=== PATIENT | female | born 1990 | race Caucasian/White ===

== ENCOUNTER 2023-08-16 15:56 | Emergency (ER) | payer BC, SELFPAY ==
[2023-08-16 15:58] VITALS: BP 120/82; BMI 21.6
--- NOTE | 2023-08-16 16:29 | ED.GENMED ---
History of Present Illness
General
Chief Complaint: Abdominal Symptoms
Source: patient
Exam Limitations: none
Time Seen by Provider: 08/16/23 16:18
Travel History
Have you had any contact with someone who has COVID-19?: No
Do you have any symptoms of coronavirus? Fever > 100 degrees, chills, cough, shortness of breath, sore throat, loss of taste or smell, muscle aches, or headache?: No
History of Present Illness
History of Present Illness:
See MDM
Past History
Past History
ED Past Medical History: None
ED Past Surgical History: None
Social History
Tobacco: Non-smoker
Alcohol: Occasional
Drug: None
Personal: Single
Living: with family
Employment: Employed
Family History
Family History: Other (non contributory)
Phy Exam
Physical Exam
Physical Exam:
See MDM
Course
Orders/Labs/Results
Orders:
Orders
08/16/23 16:25
0.9% Sodium Chloride 1000 ml [Nss] 1,000 ml IV BOLUS
Test Result ONCE
08/16/23 16:43
Complete Blood Count/With Diff Urgent
Comprehensive Metabolic Panel Urgent
HCG, Serum Qualitative Screen Urgent
Lipase Urgent
08/16/23 16:44
Promethazine [Phenergan] 12.5 mg 0.9% Sodium Chloride 50 ml [Nss] 50 ml IV NOW
08/16/23 19:17
0.9% Sodium Chloride 1000 ml [Nss] 1,000 ml IV BOLUS
08/16/23 20:52
Famotidine [Pepcid] 20 mg IV NOW STA
Abnormal Lab Results
08/16/23
16:43
MCH 33.0 H pg
(27.0-31.0)
Absolute Lymphs (auto) 0.6 L 10^3/uL
(1.2-3.4)
Neutrophils % 80.8 H %
(42.2-75.2)
Lymphocytes % 10.6 L %
(20.5-51.1)
Chloride 93 L mmol/L
(98-107)
BUN 24 H mg/dl
(7-17)
Glucose 110 H mg/dl
(70-99)
Calcium 10.6 H mg/dl
(8.4-10.2)
Total Protein 8.9 H g/dl
(6.3-8.2)
Albumin 5.5 H g/dl
(3.5-5.0)
08/16/23 16:43
08/16/23 16:43
Vital Signs
Initial and Last Documented VS:
Initial Vital Signs
Temp Pulse Resp BP Pulse Ox
99.3 F 62 16 120/82 100
08/16/23 15:58 08/16/23 15:58 08/16/23 15:58 08/16/23 15:58 08/16/23 15:58
Last Documented Vital Signs
Temp Pulse Resp BP Pulse Ox
99.3 F 62 16 127/83 99
08/16/23 15:58 08/16/23 15:58 08/16/23 15:58 08/16/23 20:00 08/16/23 20:15
MDM/Problems Addressed
Differential Diagnosis Includes:
HPI and MDM Narrative:
32-year-old female presenting with nausea and vomiting. This has been ongoing since Thursday morning. She recently returned from a girls trip to [place]. While there, one of the other girls had GI symptoms. Patient states she is having trouble
eating or drinking. She denies diarrhea or abdominal pain. Zofran at home is not helping
On exam, she does have dry mucous membranes. Will provide her with IV fluids. Will obtain basic blood work. She has a very soft and nontender abdomen. We discussed low utility and abdominal imaging given the benign exam. Given that Zofran is
not will give dose of promethazine
Physical exam
General: Well appearing and non-toxic
HEENT: protecting airway. Dry mucous membranes
Neck: appears supple
CV: No evidence of cyanosis
Resp: No accessory muscle use
Abd: Non-distended. Soft and nontender
Extremities: No deformities
Neuro: alert
Psych: Normal affect
Skin: Intact
Problems Addressed including Acute and Chronic Conditions affecting care:
1. Nausea and vomiting
Acuity: acute
Prognosis: stable
Details: Likely in setting of viral gastroenteritis. Patient is soft and nontender abdomen. Will give IV fluids and control symptoms with promethazine
Updates
After 2 L of normal saline, patient states she started feel better. She is tolerating sips of water and states he wants to go home
Differential Diagnosis (but not limited to): Viral gastroenteritis, , dehydration
Testing considered: Right upper quadrant ultrasound but no tenderness elicited
Drug therapy (if applicable): OTC meds, please see d/c instruction regarding Rx drugs
Amount and/or Complexity of Data Reviewed
Clinical info obtained from: Patient
External data reviewed: N/A
Labs I independently reviewed (but not limited to): White blood cell count normal
Radiology: N/A
Pulse Ox: not hypoxic
EKG independently reviewed: N/A
Tub Operator: N/A
Critical Care: N/A
Risk of Complication:
Social Determinants of health: Good social support
Discussed with other providers: N/A
Escalation of Care includes Admit/Obs: After being observed in the Emergency Department, pt stable for discharge.
Occasional wrong word or 'sound a like' substitutions may have occurred due to the inherent limitations of voice recognition software. Read the chart carefully and recognize, using context, where substitutions have occurred.
*Critical Care Note
Total Time (30-74mins, 75-104mins- exclusive of procedures): Not Applicable
ED Attending Note
-
Portions of this chart may have been created with voice recognition software.� Occasional wrong word or��sound alike� substitutions may have occurred due to the inherent limitations of voice recognition software.
Discharge Plan
Departure
Patient Disposition: Home (Routine Discharge)
Date of Disposition: 08/16/23
Time of Disposition: 21:11
Patient with high blood pressure during this ER visit?: No
Discharge Problem:
Viral gastroenteritis
Instructions: Nausea and Vomiting, Adult (DC)
Prescriptions:
No Action
PNV cmb#95-ferrous fumarate-FA [] 28 mg iron- 800 mcg Tablet
1 tab PO DAILY
furosemide 20 mg Tablet
20 mg PO 1XD Qty: 30 0RF
sodium chloride 1,000 mg Tablet,Soluble
1,000 mg PO BID Qty: 60 0RF
hydromorphone 4 mg Tablet
2 mg PO Q4HPRN PRN (Reason: severe pain) Qty: 40 0RF
Referrals:
Alison Han PA [Family Provider] -
Activity Restrictions/Additional Instructions:
Please return for any worsening symptoms.
You may return at any time if you have further concerns.
Please follow up with your doctor at the first available appointment, preferably this week.
Thank you for choosing [facility].
Interventions
Interventions:
*Risk Screen - Suicide Last Done: 08/16/23 15:58
*General Assessment Last Done: 08/16/23 16:39
*Neglect/Abuse Screening Last Done: 08/16/23 15:58
*ED COVID-19 Vaccine History Last Done: 08/16/23 15:58
GT-Chsuvb-Usghsbzvlr Assessment Last Done: 08/16/23 16:39
[2023-08-16] MEDS: NSS 1000 IV ×2 (16:53→19:19)
[2023-08-16] MEDS: PHENERGAN 50.5 MG IV (17:01)
[2023-08-16 17:05] LABS: % Basophils 0.4 % (0-2); % Immature Granulocytes 0.2 % (0-0.5); % Lymphocytes 10.6 % (20.5-51.1); % Neutrophils 80.8 % (42.2-75.2); Absolute Lymphocytes 0.6 10^3/uL (1.2-3.4); Absolute Monocytes 0.4 10^3/uL (0.1-0.6); Absolute Neutrophils 4.4 10^3/uL (1.4-6.5); Hematocrit 40.7 % (37.0-47.0); Hemoglobin 14.6 g/dL (12.0-16.0); Mean Corp Hgb Conc. 35.9 g/dL (33.0-37.0); Mean Corpuscular Volume 91.9 fL (81.0-99.0); Mean Platelet Volume 10.2 fL (7.4-10.4); Nucleated Red Blood Cells % 0 %; Platelet Count 259 10^3/uL (130-400); Red Blood Cell Count 4.43 10^6/uL (4.20-5.40); Red Cell Dist. Width 11.5 % (11.5-14.5); White Blood Cell Count 5.5 10^3/uL (4.8-10.8)
[2023-08-16 17:10] LABS: HCG, Serum Qualitative Screen Negative
[2023-08-16 17:13] LABS: ALT (SGPT) 22 U/L (0-35); AST (SGOT) 28 U/L (14-36); Albumin 5.5 g/dl (3.5-5.0); Alkaline Phosphatase 58 U/L (38-126); Blood Urea Nitrogen 24 mg/dl (7-17); Calcium 10.6 mg/dl (8.4-10.2); Carbon Dioxide 30 mmol/L (22-30); Chloride 93 mmol/L (98-107); Estimated Creatinine Clearance 95 ml/min; Glucose 110 mg/dl (70-99); Potassium 3.7 mmol/L (3.5-5.1); Sodium 137 mmol/L (135-145); Total Bilirubin 0.9 mg/dl (0.2-1.3); Total Protein 8.9 g/dl (6.3-8.2); eGFR > 60.00
[2023-08-16 17:27] LABS: Lipase 48 U/L (23-300)
[2023-08-16 19:00] VITALS: BP 122/83
[2023-08-16 20:00] VITALS: BP 127/83
[2023-08-16 21:00] VITALS: BP 117/86
[2023-08-16] MEDS: PEPCID 20 MG IV (21:02)
== END 2023-08-16 21:25 | disposition home or self-care (01) ==
LOC: EMR 15:56
PROVIDERS: EMERGENCY PHYSICIAN Student in an Organized Health Care Education/Training Program; FAMILY PHYSICIAN Physician Assistant
DX: A08.4 Viral intestinal infection, unspecified (principal)
CPT/HCPCS: 99284; 96374; 96375; 96361 ×3; 80053; 83690; 84703; 85025

== ENCOUNTER 2023-08-18 09:01 | Emergency (ER) | payer BC, SELFPAY ==
[2023-08-18 09:14] VITALS: BP 129/81
--- NOTE | 2023-08-18 10:14 | ED.GENMED ---
History of Present Illness
General
Chief Complaint: Abdominal Symptoms
Source: patient and spouse
Time Seen by Provider: 08/18/23 09:44
Travel History
Have you had any contact with someone who has COVID-19?: No
Do you have any symptoms of coronavirus? Fever > 100 degrees, chills, cough, shortness of breath, sore throat, loss of taste or smell, muscle aches, or headache?: No
History of Present Illness
History of Present Illness:
This patient is a very pleasant 32-year-old female who is visiting [place] with friends over the weekend. One of her friends became ill with nausea and vomiting on Thursday. By Thursday, patient was experiencing the same symptoms, intractable
nausea and nonbloody vomiting. She had such difficulty tolerating any p.o. that she came to the emergency department on Thursday with continued symptoms. At that time she had a full evaluation, was hydrated, given antinausea medication, and felt
better. However, about 24 hours after discharge, symptoms recurred. She reports nausea and continued nonbloody vomiting. When asked about abdominal pain she denies pain. She said that she had 'abdominal spasms' on Thursday only while she was
'heaving'. This is resolved. She now just feels like she has 'acid reflux' uncomfortableness. Her last menstruation was August 11 and she is still menstruating. She now notes loose stools that are not black or bloody. Besides travel to [place]
or [place] she denies exotic or foreign travel. She denies fever, chills, chest pain, dyspnea, or other complaints.
Past History
Past History
ED Past Medical History: Other (HELLP December 2021, reflux, hemochromatosis trait)
ED Past Surgical History:
Social History
Tobacco: Non-smoker
Alcohol: Occasional
Drug: None
Personal:
Living: with family
Employment: Employed
Family History
Family History: Other (non contributory)
Phy Exam
Physical Exam
Physical Exam:
GENERAL: Alert , in no apparent distress
EYE: pupils equal and reactive
NECK: Supple, no significant adenopathy.
ENT: o/p clr, mm dry
CARDIAC: Regular rate and rhythm .
LUNGS: Clear breath sounds bilaterally, no acute respiratory distress, no wheezes/rales/rhonchi
ABDOMEN: Soft, without focal tenderness, no r/g, no cvat
NEUROLOGICAL: Alert and oriented, no focal neuro deficits
SKIN: Warm and dry, skin intact.
MUSCULOSKELETAL: No edema, well perfused.
PSYCH: Normal and appropriate interaction.
Course
Orders/Labs/Results
Orders:
Orders
08/18/23 10:13
Cardiac Monitoring- Treatment ONCE
0.9% Sodium Chloride 1000 ml [Nss] 1,000 ml IV BOLUS
Pantoprazole [Protonix IV] 40 mg IV NOW STA
Test Result ONCE
08/18/23 10:52
Complete Blood Count/No Diff Urgent
Comprehensive Metabolic Panel Urgent
HCG, Serum Qualitative Screen Urgent
Lipase Urgent
Promethazine [Phenergan] 12.5 mg 0.9% Sodium Chloride 50 ml [Nss] 50 ml IV NOW
08/18/23 12:27
0.9% Sodium Chloride 1000 ml [Nss] 1,000 ml IV BOLUS
Abnormal Lab Results
08/18/23
10:52
RBC 3.91 L 10^6/uL
(4.20-5.40)
Hct 36.1 L %
(37.0-47.0)
MCH 33.2 H pg
(27.0-31.0)
RDW 11.0 L %
(11.5-14.5)
MPV 10.5 H fL
(7.4-10.4)
Sodium 131 L mmol/L
(135-145)
BUN 18 H mg/dl
(7-17)
Creatinine 0.5 L mg/dL
(0.6-1.0)
08/18/23 10:52
08/18/23 10:52
Vital Signs
Initial and Last Documented VS:
Initial Vital Signs
Temp Pulse Resp BP Pulse Ox
99.3 F 61 20 129/81 98
08/18/23 09:14 08/18/23 09:14 08/18/23 09:14 08/18/23 09:14 08/18/23 09:14
Last Documented Vital Signs
Temp Pulse Resp BP Pulse Ox
99.3 F 59 20 119/90 98
08/18/23 09:14 08/18/23 15:15 08/18/23 15:15 08/18/23 14:00 08/18/23 10:57
*Critical Care Note
Total Time (30-74mins, 75-104mins- exclusive of procedures): Not Applicable
Update Note
Update Note:
Patient presents to the Emergency Department with __nausea vomiting diarrhea
Number and Complexity of Problems Addressed at the Encounter
� Chronic conditions affecting care:
� Acute Exacerbation and/or Progression of Chronic Illness:
� Differential Diagnosis includes: But not limited to bowel obstruction, viral gastroenteritis, cholecystitis, appendicitis, etc. etc.
Amount and/or Complexity of Data to be Reviewed and Analyzed
� I performed an independent evaluation of and my interpretation is:
EKG:
CT:
Xrays:
Laboratory Studies: Generally unremarkable, mild prerenal azotemia suggestive of dehydration
Other:
� Review of other/old records reveals: ER records from 08/15 reviewed
� Clinical information was obtained by an independent historian: who is bedside
� Prescriptions/Medications Considered but not given:
� Further testing considered but not performed:
Risk of Complications and/or Morbidity or Mortality of Patient Management
� Social determinants of health affecting care:
� Discussion with other providers (PCP, Hospitalists, Consultants, etc):
� Escalation of care including admission/observation vs risk of discharge considered: 12:28 PM reassessment, abdomen remains soft and patient denies abdominal pain or repeated vomiting. She just took a nap, drowsiness may be a
side effect of antinausea medication in addition to repeated vomiting and likely lack of sleep at home. She has not yet urinated here. Will repeat IV fluids and reassess.
209 PM no vomiting, no abd pain, would like to try po. anticipate d/c. no findings to suggest acute abd/pelvic/neuro process.
ED Attending Note
-
Portions of this chart may have been created with voice recognition software.� Occasional wrong word or��sound alike� substitutions may have occurred due to the inherent limitations of voice recognition software.
Discharge Plan
Departure
Patient Disposition: Home (Routine Discharge)
Patient with high blood pressure during this ER visit?: Yes
Condition: Good
Discharge Problem:
Vomiting
Instructions: Nausea and Vomiting, Adult (DC), BLOOD PRESSURE
Prescriptions:
No Action
PNV cmb#95-ferrous fumarate-FA [] 28 mg iron- 800 mcg Tablet
1 tab PO DAILY
furosemide 20 mg Tablet
20 mg PO 1XD Qty: 30 0RF
sodium chloride 1,000 mg Tablet,Soluble
1,000 mg PO BID Qty: 60 0RF
hydromorphone 4 mg Tablet
2 mg PO Q4HPRN PRN (Reason: severe pain) Qty: 40 0RF
Referrals:
Alison Han PA [Family Provider] - Tomorrow
Activity Restrictions/Additional Instructions:
IF YOU DEVELOP RECURRENT/REPEATED VOMITING, FEVER, ABDOMINAL PAIN, CHEST PAIN, TROUBLE BREATHING, OR OTHER WORRISOME SIGNS, GO TO THE ER IMMEDIATELY!
Interventions
Interventions:
*Risk Screen - Suicide Last Done: 08/18/23 11:06
*General Assessment Last Done: 08/18/23 10:57
*Neglect/Abuse Screening Last Done: 08/18/23 11:06
ED- Fall Risk Assessment Last Done: 08/18/23 10:57
*ED COVID-19 Vaccine History Last Done: 08/18/23 10:57
*Nursing Disposition Last Done: 08/18/23 15:21
KI-Nzcosz-Hkexvclxjq Assessment Last Done: 08/18/23 10:57
Discharge Date and Time
Discharge Date/Time: 08/18/23 15:25
Print Language: ALBANIAN
[2023-08-18] MEDS: PROTONIX IV 40 MG IV (10:51)
[2023-08-18] MEDS: NSS 1000 IV ×2 (10:51→12:41)
[2023-08-18 10:57] VITALS: BMI 22.4
[2023-08-18 11:03] VITALS: BP 125/90
[2023-08-18 11:09] LABS: Hematocrit 36.1 % (37.0-47.0); Mean Corpuscular Hgb 33.2 pg (27.0-31.0); Mean Corpuscular Volume 92.3 fL (81.0-99.0); Mean Platelet Volume 10.5 fL (7.4-10.4); Platelet Count 195 10^3/uL (130-400); Red Blood Cell Count 3.91 10^6/uL (4.20-5.40); White Blood Cell Count 6.3 10^3/uL (4.8-10.8)
[2023-08-18] MEDS: PHENERGAN 50.5 MG IV (11:12)
[2023-08-18 11:30] LABS: HCG, Serum Qualitative Screen Negative
[2023-08-18 11:31] LABS: ALT (SGPT) 23 U/L (0-35); AST (SGOT) 26 U/L (14-36); Albumin 4.7 g/dl (3.5-5.0); Alkaline Phosphatase 47 U/L (38-126); Blood Urea Nitrogen 18 mg/dl (7-17); Calcium 9.3 mg/dl (8.4-10.2); Carbon Dioxide 23 mmol/L (22-30); Chloride 98 mmol/L (98-107); Estimated Creatinine Clearance 108 ml/min; Glucose 83 mg/dl (70-99); Lipase 33 U/L (23-300); Potassium 3.8 mmol/L (3.5-5.1); Sodium 131 mmol/L (135-145); Total Bilirubin 0.8 mg/dl (0.2-1.3); Total Protein 7.1 g/dl (6.3-8.2); eGFR > 60.00
[2023-08-18 12:00] VITALS: BP 130/90
[2023-08-18 13:00] VITALS: BP 121/92
[2023-08-18 14:00] VITALS: BP 119/90
== END 2023-08-18 15:25 | disposition home or self-care (01) ==
LOC: EMR 09:01
PROVIDERS: EMERGENCY PHYSICIAN Emergency Medicine; FAMILY PHYSICIAN Physician Assistant
DX: R11.2 Nausea with vomiting, unspecified (principal); R19.7 Diarrhea, unspecified
CPT/HCPCS: 99284; 96365; 96375; 96361 ×2; 80053; 83690; 84703; 85027

== ENCOUNTER → 2024-03-08 07:51 | Outpatient (REF) | payer BC, SELFPAY | LOC: HWRAD 07:51 | PROVIDERS: ATTENDING PHYSICIAN Specialist; FAMILY PHYSICIAN Family Medicine | DX: K82.4 Cholesterolosis of gallbladder (principal) | CPT/HCPCS: 76700 ==

== ENCOUNTER → 2024-04-28 12:12 | Outpatient (REF) | payer BC, SELFPAY | LOC: PAVMRI 12:12 | PROVIDERS: ATTENDING PHYSICIAN Specialist; FAMILY PHYSICIAN Physician Assistant | DX: D18.03 Hemangioma of intra-abdominal structures (principal) | CPT/HCPCS: 74183; A9575 ==

== ENCOUNTER → 2025-04-07 10:02 | Outpatient (REF) | payer BC, SELFPAY | LOC: HWRAD 10:02 | PROVIDERS: ATTENDING PHYSICIAN Specialist; FAMILY PHYSICIAN Physician Assistant | DX: K82.4 Cholesterolosis of gallbladder (principal) | CPT/HCPCS: 76700 ==

== ENCOUNTER → 2025-05-08 08:21 | Outpatient (REF) | payer BC, SELFPAY | LOC: HWRAD 08:21 | PROVIDERS: ATTENDING PHYSICIAN Obstetrics & Gynecology; FAMILY PHYSICIAN Physician Assistant | DX: N97.9 Female infertility, unspecified (principal) | CPT/HCPCS: 76830; 76856 ==